=== PATIENT | female | born 1975 | race Hispanic/Latino ===

== ENCOUNTER 2024-04-19 22:01 | Emergency (ER) | payer BC, OTHER ==
--- OUTSIDE RECORDS SUMMARY | 2024-04-19 22:04 | XMS REPORT | Continuity of Care Document ---
Author Name Unknown Address [address] [facility] [address] [place] [address] [facility] thconnect Address [address] [facility] 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 87 ON 9 [id number] 2024 00:00:00 Allergies, Adverse Reactions, Alerts Allergy Name Allergy Type Status Severity Reaction(s) Onset Date Inactive Date Treating Clinician Comments Source Penicill in G Propensi ty to adverse reaction s Active Rash 03-18 00:00: 00 Jada Hudson Externa l Social History Social Habit Start Date Stop Date Quantity Comments Source Sexual orientation K nerissa Tatum - External History of Social function 2024-04-08 00:00:00 2024-04-08 00:00:00 Jada Tatum - External Sex [birth year] at 1975 00:00:00 1975 00:00:00 Jada Tatum - External Smoking Status Start Date Stop Date Source Never smoked tobacco Jada Tatum - External Medications Ordered Medication Name Filled Medication Name Start Date Stop Date Current Medication? Ordering Clinician Indication Dosage Frequency Signature (SIG) Comments Components Source Cholecalcif sangeeta (VITAMIN D3 OR) 04-08 11:34: 32 Yes 2000U Take 2,000 units by mouth. Jada Loeraybold - Externa l QUEtiapine Fumarate 150 MG oral Tablet 04-08 11:29: 28 Yes Take by mouth. Jada Loeraybold - Externa l QUEtiapine Fumarate 150 MG oral Tablet 03-18 08:38: 34 Yes Take by mouth. Jada Alfordold - Externa l Vital Signs Vital Name Observation Time Observation Value Comments S jessie Systolic blood pressure 2024-04-08 16:33:00 124 mm[Hg] Jada Seybo ld - External Diastolic blood pressure 2024-04-08 16:33:00 73 mm[Hg] Jada Loeraybo ld - External Heart rate 2024-04-08 16:33:00 70 /min Kelse y Seybold - External Body temperature 2024-04-08 16:33:00 36.33 Yuliya Jdaa Loeraybold - External Respiratory rate 2024-04-08 16:33:00 16 /min Jada Loeraybold - External Body height 2024-04-08 16:33:00 152.4 cm Gala ey Seybold - External Body weight 2024-04-08 16:33:00 70.308 kg Gala ey Seybold - External BMI 2024-04-08 16:33:00 30.27 kg/m2 Gala ey Seybold - External Oxygen saturation in Arterial blood by Pulse oximetry 2024-04-08 16:33:00 99 /min Jada Alfordo ld - External Body height 2024-03-30 18:45:00 152.4 cm Gala ey Seybold - External Body weight 2024-03-30 18:45:00 72.122 kg Gala ey Seybold - External BMI 2024-03-30 18:45:00 31.05 kg/m2 Gala ey Seybold - External Systolic blood pressure 2024-03-18 13:37:00 143 mm[Hg] Jada Loeraybo ld - External Diastolic blood pressure 2024-03-18 13:37:00 83 mm[Hg] Jada Loeraybo ld - External Heart rate 2024-03-18 13:37:00 70 /min Kelse y Seybold - External Body temperature 2024-03-18 13:37:00 36.33 Yuliya Jada Seybold - External Respiratory rate 2024-03-18 13:37:00 16 /min Jada Alfordold - External Body height 2024-03-18 13:37:00 152.4 cm Gala Tatum - External Body weight 2024-03-18 13:37:00 72.122 kg Gala Alfordold - External BMI 2024-03-18 13:37:00 31.05 kg/m2 Gala Alfordold - External Oxygen saturation in Arterial blood by Pulse oximetry 2024-03-18 13:37:00 100 /min Jada Loeraalonso ld - External Encounters Start Date/Time End Date/Time Encounter Type Admission Type Attending [facility] Care Department Encounter ID Source 2024-09-20 15:00:00 2024-09-20 15:00:00 Outpatient LULY HERNANDEZ [id number] Jada Seybtroy 2024-07-08 08:30:00 2024-07-08 08:30:00 Outpatient [facility]ERICK KENDALL [id number] [facility] 2024-05-06 07:15:00 2024-05-06 07:15:00 Outpatient JADA HECTOR [id number] Jada Seybtroy 2024-04-22 16:00:00 2024-04-22 16:00:00 Outpatient JADA HECTOR [id number] Jada Seybtroy 2024-04-08 11:00:00 2024-04-08 11:00:00 Outpatient [facility]ODERICK KENDALL [id number] [facility] 2024-03-30 14:30:00 2024-03-30 14:30:00 Outpatient RJ ADAIR [id number] Jada Seybtroy 2024-03-22 09:15:00 2024-03-22 09:15:00 Outpatient HANNA CLARKE [id number] [facility] 2024-03-21 00:00:00 2024-03-21 00:00:00 Outpatient RODERICK KENDALL [id number] Jada Seybtroy 2024-03-18 11:00:00 2024-03-18 11:00:00 Outpatient LAUREN GONZALES [id number] Jada Tatum 2024-03-18 10:45:00 2024-03-18 10:45:00 Outpatient LABSuzanne HECTOR [id number] Jada Tatum 2024-03-18 10:15:00 2024-03-18 10:15:00 Outpatient ABBYDSuzanne HECTOR [id number] Jada Tatum 2024-03-18 08:30:00 2024-03-18 08:30:00 Outpatient RODERICK KENDALL [id number] Jada Tatum 2023-01-15 11:24:03 2023-01-15 11:24:03 Outpatient [facility] [id number] Keegan Hinkle 2022-11-20 14:55:49 2022-11-20 14:55:49 Outpatient [facility] [id number] Keegan Hinkle 2022-11-17 16:21:17 2022-11-17 16:21:17 Outpatient [facility] [id number] Keegan Hinkle Results Test Description Test Time Test Comments Results Resul t Comments Source SCR MAMM BILATERAL ULYSSES CAD DIGITAL 2019-06-15 14:00:12 - SCR MAMM BILATERAL ULYSSES CAD DIGITALBILATERAL DIGITAL SCREENING MAMMOGRAM 3D/2D WITH CAD: 06/10/2019CLINICAL: Asymptomatic. Digital breast tomosynthesis was performed in addition to routine CC and MLO views. Current mammographic images were evaluated by either a [employer] M-Vu or a [employer] Video ImageChecker CAD (computer aided detection system). Comparison is made to exams dated 07/20/2017 mammogram, 05/16/2016 mammogram, and 01/07/2012 mammogram - [facility]. The tissue of both breasts is heterogeneously dense. This may lower the sensitivity of mammography. There is a benign calcification in the right breast. No suspicious mass, architectural distortion, malignant type calcification, or lymph node abnormality detected. Breast architecture is stable compared to prior exams.IMPRESSION: BENIGNThere is no mammographic evidence of malignancy. Resume annual screening mammography in one year. Your patient's mammogram demonstrates that she has dense breast tissue. This can hide abnormalities. In compliance with [place] law (Henda's Law), your patient has been sent a letter which informs her of her breast density and notifies her that, depending on her individual risk factors for the development of breast cancer, she might benefit from additional screening tests such as ultrasound. Dense breast tissue, in and of itself, is a relatively common condition. Therefore, this information is not provided to cause undue concern, but rather to raise awareness and to promote discussion regarding the presence of other risk factors, in addition to dense breast tissue.Coleman Dominguez M.D. rb/:06/15/2019 14:00:12 Slot Key Person: Lyn Carrizales MM, [facility] [place] [employer] Mammographyletter sent: BIRADS 1-2 Normal Mammogram BI-RADS: 2 Benign Notes Date/Time Note Provider Source 2024-04-08 11:34:39 [id number]:34:39F ormatting of this note is different from the original.Chief ComplaintPatient presents withFollow-up3 week f/[phone] (home) [phone] (work)[place] [id number] SxavJB8691-09-25X54:34:51Nurse [id number].2. [id number] for patient [id number] NoteLNNARRATIVEFormatted C-CDA narrative José MiguelSEILING REGIONAL MED[facility] – SEILINGRaminCleveland Clinic [facility]ucl[facility] [facility] [id number] [id number]:34:511.2.840.047449.1.7 2.3.15|1.2.840.959318.1.13.131.2.7.2. [id number] [facility] 2024-03-30 13:45:58 [id number]:45:58F ormatting of this note is different from the original.Chief ComplaintPatient presents withEar ProblemPt c/o of clogged ears for 2 weeks. [id number] EncwNX2137-71-15F76:46:11Nurse NoteTXT1.2.840.781152.1.13.131.2.7.2. [id number] for patient mghb76175-2Ksabj NoteLNNARRATIVEFormatted C-CDA narrative text[address] [id number] [id number]:46:111.2.840.341133.1.7 2.3.15|1.2.840.176475.1.13.131.2.7.2. [id number] [facility] 2024-03-18 08:38:51 [id number]:38:51F ormatting of this note is different from the original.Chief ComplaintPatient presents [phone] (home) [phone] (work)[place] [id number] JvjmHN7532-25-98O48:39:16Nurse NoteTXT1.2.840.427951.1.13.131.2.7.2. [id number] for patient vimh17213-9Qevkj NoteLNNARRATIVEFormatted C-CDA narrative [address][id number] [id number]:39:161.2.840.877348.1.7 2.3.15|1.2.840.687907.1.13.131.2.7.2. [id number] [facility]"
[2024-04-19] MEDS ORDERED: PROMETHAZINE 25 MG TABLET ONE (22:37)
[2024-04-19] MEDS ORDERED: HYDROCODONE/APAP 10/325 TAB ONE (22:38)
[2024-04-19] MEDS ORDERED: IBUPROFEN 400 MG TAB ONE ×2 (22:38→22:42)
[2024-04-19] MEDS ORDERED: methocarbamoL 750 MG TAB ONE (22:38)
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
--- NOTE | 2024-04-20 02:03 | EDPHYS ---
Physician Documentation [facility] Name: Ambar Burciaga Age: 48 yrs Sex: Female : 1975 Arrival Date: 04/19/2024 Time: 22:01 Bed 7 Private MD: ED Physician Manuel Crawford HPI: 04/19 22:15 This 48 yrs old Female presents to ER via Unassigned with complaints of Fall sp4 Injury, Elbow Injury. 04/20 21:24 48-year-old female presents with acute injury to the left elbow after she fell just sp4 prior to arrival . Historical: - Allergies: 04/19 22:32 PENICILLINS; tl4 - Home Meds: 22:32 Seroquel 150 mg Oral [Active]; tl4 - PMHx: 22:32 Bipolar disorder; tl4 - Immunization history:: Adult Immunizations unknown. - Infectious Disease History:: Denies. - Social history:: Smoking status: Patient denies any tobacco usage or history of. - Family history:: not pertinent. ROS: 04/20 21:24 Constitutional: Negative for fever, chills, and weight loss, positive left elbow sp4 pain and positive restricted left elbow range of motion. All other systems are negative, Exam: 21:24 Constitutional: This is a well developed, well nourished patient who is awake, alert, sp4 and in no acute distress. Head/Face: Normocephalic, atraumatic. Eyes: Pupils equal round and reactive to light, extra-ocular motions intact. Lids and lashes normal. Conjunctiva and sclera are not injected. Cornea within normal limits. Periorbital areas with no swelling, redness, or edema. ENT: Nares patent. No nasal discharge, no septal abnormalities noted. Tympanic membranes are normal and external auditory canals are clear. Oropharynx with no redness, swelling, or masses, exudates, or evidence of obstruction, uvula midline. Mucous membranes moist. Neck: Trachea midline, no thyromegaly or masses palpated, and no cervical lymphadenopathy. Supple, full range of motion without nuchal rigidity, or vertebral point tenderness. Chest/axilla: Normal chest wall appearance and motion. Nontender with no deformity. No lesions are appreciated. Cardiovascular: Regular rate and rhythm with a normal S1 and S2. No gallops, murmurs, or rubs. Normal PMI, no JVD. No pulse deficits. Respiratory: Lungs have equal breath sounds bilaterally, clear to auscultation and percussion. No rales, rhonchi or wheezes noted. No increased work of breathing, no retractions or nasal flaring. Abdomen/GI: Soft, with normal bowel sounds. No distension or tympany. No guarding or rebound. No evidence of tenderness throughout. Back: No spinal tenderness. No costovertebral tenderness. Skin: Warm, dry with normal turgor. Normal color with no rashes, no lesions, and no evidence of cellulitis. MS/ Extremity: Pulses equal, no cyanosis. Neurovascular intact. Full, normal range of motion. Positive left elbow pain tenderness and restricted range of motion. Femoral pulses intact. Passive range of motion is reasonable.. Distal neurovascular status intact Neuro: Awake and alert, GCS 15, oriented to person, place, time, and situation. Cranial nerves II-XII grossly intact. Motor strength 5/5 in all extremities. Sensory grossly intact. Psych: Awake, alert, with orientation to person, place and time. Behavior, mood, and affect are within normal limits Vital Signs: 04/19 22:30 BP 117 / 91; Pulse 93; Resp 16; Temp 98.5(O); Pulse Ox 100% on R/A; Weight 69.85 kg; tl4 Height 5 ft. 0 in. ; Pain 7/10; 04/20 02:25 BP 112 / 80; Pulse 84; Resp 17; Temp 98.5; Pulse Ox 100% ; Pain 2/10; bm8 04/19 22:30 Body Mass Index 30.08 (69.85 kg, 152.4 cm) 4 04/19 22:30 Pain Scale: Adult tl4 04/20 02:25 Pain Scale: Adult bm8 Nehemias Coma Score: 02:25 Eye Response: spontaneous(4). Motor Response: obeys commands(6). Verbal Response: bm8 oriented(5). Total: 15. 21:24 Eye Response: spontaneous(4). Motor Response: obeys commands(6). Verbal Response: sp4 oriented(5). Total: 15. Procedures: 01:57 Splinting: Splint applied to left tricep, left elbow, left wrist and palmar aspect of sp4 left forearm using Orthoglass splint, Left posterior long arm fiberglass splint with a sling . applied by nurse. Examined by me, post splint application: neurovascular intact, 2+ distal pulses palpable, brisk capillary refill noted, Patient tolerated well, Sling applied . MDM: 04/19 22:17 Patient medically screened. sp4 04/20 01:50 ED course: EXAM DESCRIPTION: Forearm Left 3 View CLINICAL HISTORY: PAIN COMPARISON: sp4 None FINDINGS: Two x-ray views of the left forearm were submitted. There is a nondisplaced fracture at the level of the radial head. There is no radiopaque foreign body material. IMPRESSION: Nondisplaced radial head fracture. . ED course: EXAM DESCRIPTION: Humerus Left 2 Views CLINICAL HISTORY: left elbow pain COMPARISON: None FINDINGS: Two x-ray views of the left humerus were submitted. There is no acute fracture or dislocation of the humerus. Again visualized is a fracture at the level of the radial head.. Bone mineralization is within normal limits. There is no radiopaque foreign body material. IMPRESSION: No acute fracture or dislocation of the humerus. Radial head fracture. . 01:57 Differential diagnosis: abrasion, contusion, fracture, laceration, multiple trauma. sp4 Data reviewed: vital signs, nurses notes, radiologic studies, plain films. ED course: X-ray has revealed fracture of the left radial head. There is nondisplaced radial head fracture through the joint line. Patient is stable for discharge home with follow-up with orthopedist for full cast.. 21:24 Consideration of Admission/Observation Escalation of care including sp4 admission/observation considered. ED course: And was advised to see orthopedist for full cast and close follow-up in 3 to 4 days. 04/19 22:26 Order name: Forearm Left XRAY sp4 04/19 22:26 Order name: Humerus Left XRAY sp4 04/20 01:56 Order name: Splint - Ulnar Gutter: left long posterior gutter splint; Complete Time: sp4 02:25 07 01:56 Order name: Sling; Complete Time: 02:25 sp4 Administered Medications: 04/19 22:40 Drug: Ibuprofen PO 800 mg PO once Route: PO; tl4 23:15 Follow up: Response: No adverse reaction; Pain is decreased tl4 22:40 Drug: Promethazine PO 25 mg PO once Route: PO; tl4 23:15 Follow up: Response: No adverse reaction tl4 22:43 Drug: [place] PO 10 mg-325 mg 1 tabs PO once Route: PO; tl4 23:16 Follow up: Response: No adverse reaction; Pain is decreased tl4 22:43 Drug: Methocarbamol PO 750 mg PO once Route: PO; tl4 23:16 Follow up: Response: No adverse reaction; Pain is decreased tl4 04/20 02:25 Drug: [place] PO 10 mg-325 mg 1 tabs PO once Route: PO; bm8 02:36 Follow up: Response: No adverse reaction bm8 Disposition: 21:27 Chart complete. sp4 Disposition Summary: 04/20/24 02:03 Discharge Ordered Notes: Location: Home sp4 Problem: new sp4 Symptoms: have improved sp4 Condition: Stable sp4 Diagnosis - Acute left radial head fracture , non displaced , initial encounter sp4 Followup: sp4 - With: Avery Ziegler MD - When: 7 - 10 days - Reason: Recheck today's complaints Discharge Instructions: - Discharge Summary Sheet sp4 - Radial Head Elbow Fracture Rehab sp4 Forms: - Patient Portal Instructions sp4 Prescriptions: - Ibuprofen 800 mg Oral Tablet - take 1 tablet ORAL route every 8 hours As needed take with food; 30 tablet; sp4 Refills: 0, Product Selection Permitted - Tramadol 50 mg Oral tablet - take 1 tablet ORAL route every 8 hours as needed; 20 tablet; Refills: 0, sp4 Product Selection Permitted Signatures: Dispatcher [employer] Manuel Montelongo MD MD sp4 Joaquin Cook RN RN tl4 David Mohr RN RN bm8 Corrections: (The following items were deleted from the chart) 04/19 22:33 22:32 Allergies: No Known Allergies; tl4 tl4
[2024-04-20] MEDS ORDERED: HYDROCODONE/APAP 10/325 TAB ONE (02:11)
[2024-04-20 03:23] VITALS: BP 112/80; TEMP 98.5; O2SAT 100
--- NOTE | 2024-04-20 11:01 | RAD REPORT ---
EXAM DESCRIPTION: RAD - Humerus Left - 04/19/2024 10:56 pm CLINICAL HISTORY: Left elbow pain COMPARISON: None FINDINGS: Two x-ray views of the left humerus were submitted. There is no acute fracture or dislocat ion of the humerus. Again visualized is a fracture at the level of the radial head.. Bone mineralizat ion is within normal limits. There is no radiopaque foreign body material. IMPRESSION: No acute fracture or dislocation of the humerus. Radial head fracture. Electronically signed by: Lamont Jaeger MD 04/19/2024 11:23 PM CDT RP Due to temporary technical issues with the PACS/Fluency reporting system, reports are being signed by the in house radiologist without review as a courtesy to ensure prompt reporting. The interpreting r adiologist is fully responsible for the content of the report.
--- NOTE | 2024-04-20 11:09 | RAD REPORT ---
EXAM DESCRIPTION: RAD - Forearm Left - 04/19/2024 10:56 pm CLINICAL HISTORY: PAIN COMPARISON: None FINDINGS: Two x-ray views of the left forearm were submitted. There is a nondisplaced fracture at th e level of the radial head. There is no radiopaque foreign body material. IMPRESSION: Nondisplaced radial head fracture. Electronically signed by: Lamont Jaeger MD 04/19/2024 11:23 PM CDT RP Due to temporary technical issues with the PACS/Fluency reporting system, reports are being signed by the in house radiologist without review as a courtesy to ensure prompt reporting. The interpreting r adiologist is fully responsible for the content of the report.
== END 2024-04-20 02:36 | disposition home or self-care (01) ==
LOC: ER 22:01
PROC: 2W3BX1Z Immobilization of Left Upper Arm using Splint (ICD-10-PCS; principal; 2024-04-20)
DX: S52.125A Nondisplaced fracture of head of left radius, initial encounter for closed fracture (principal)
CPT/HCPCS: 73090; 73060; 99284; 29105; Q0169